=== PATIENT | male | born 1980 | race African-American/Black ===

== ENCOUNTER 2023-11-08 13:40 | Emergency (ER) | payer OTHER, SELFPAY | END 2023-11-08 16:19 | disposition home or self-care (01) | LOC: CSHERS 13:40 | DX: Z76.0 Encounter for issue of repeat prescription (principal); Z60.9 Problem related to social environment, unspecified; I10 Essential (primary) hypertension; F17.210 Nicotine dependence, cigarettes, uncomplicated | CPT/HCPCS: 99283 ==

== ENCOUNTER 2024-09-02 01:46 | Emergency (ER) | payer SELFPAY | END 2024-09-02 02:22 | disposition home or self-care (01) | LOC: CSHERS 01:46 | DX: I10 Essential (primary) hypertension (principal); F20.9 Schizophrenia, unspecified; F17.210 Nicotine dependence, cigarettes, uncomplicated; F17.200 Nicotine dependence, unspecified, uncomplicated; Z59.00 Homelessness unspecified; Z76.5 Malingerer [conscious simulation] | CPT/HCPCS: 99283 ==